=== PATIENT | female | born 1985 ===

== ENCOUNTER → 2019-06-01 | Day surgery (SDC) | payer OTHER ==
[~2019-06-01] MED LIST: FLECAINIDE ACET50 MG PO; MORGIDOX100 MG PO; SYNTHROID75 MCG PO; Tylenol #3 PO; VITAMIN C500 MG PO
== END | disposition home or self-care (01) ==
LOC: ADM 05-25 09:30 → CIR.AMB 09:15
DX: D25.0 Submucous leiomyoma of uterus (principal); N84.0 Polyp of corpus uteri